=== PATIENT | male | born 1970 | race Caucasian/White ===

== ENCOUNTER 2021-03-27 12:33 | Emergency (ER) | payer OTHER ==
[~2021-03-27] VITALS: Ht 180.3 cm; Wt 136.1 kg
[~2021-03-27 12:33] MED LIST: BACTRIM DS TAB1 EACH PO; CIPRO500 MG PO; FLOMAX0.4 MG PO; HYDROCODONE-AP1 EAC6 PO; IBUPROFEN 800800 M1 PO; NORCO 5-325 TA1 EACH PO; ONDANSETRON HCL4 M2 PO
--- NOTE | 2021-03-27 13:20 | EKG ---
[place] [address] ELECTROCARDIOGRAM REPORT Name: CESARIO LLAMAS Room: [facility]#: [id number] Admission: Attend Phys: Discharge: Date of : 70 Date of Service: 03/27/21 1307 Report #: [id number] THIS REPORT FOR: //name// [facility] ED Test Date: 2021-03-27 Test Time: 13:07:32 Pat Name: CESARIO LLAMAS Department: Room: Gender: M Brand Mgr: KF : 1970 Requested By: Gavin Gay Order Number: [id number] MD: Ross Kumari Measurements Intervals [place] Rate: 79 P: 58 TN: 183 QRS: -28 QRSD: 112 T: 40 QT: 365 QTc: 419 Interpretive Statements Sinus rhythm left anterior fasicular block Incomplete right bundle branch block Abnormal R-wave progression, late transition Inferior infarct, old No previous ECG available for comparison Electronically Signed On 03-27-2021 13:19:42 CDT by Ross Kumari [email or web address] <ELECTRONICALLY SIGNED> By: Ross Kumari MD, [facility] 03/27/21 1319 1307 130 Ross Kumari MD, [facility] /EPI
[2021-03-27 13:38] LABS: ABSOLUTE EOSINOPHILS 0.1 thou/uL (0.0-0.7); ABSOLUTE LYMPHOCYTES 1.5 thou/uL (0.8-5.3); ABSOLUTE MONOCYTES 0.5 thou/uL (0.0-1.2); ABSOLUTE NEUTROPHILS 6.6 thou/uL (1.6-8.1); BASOPHILS 0.5 %; EOSINOPHILS 0.6 %; HEMATOCRIT 40.2 % (42.0-52.0); HEMOGLOBIN 14.2 gm/dL (14.0-18.0); LYMPHOCYTES 17.6 %; MCH 29.4 pg (26.0-34.0); MCHC 35.3 g/dL (28.0-37.0); MCV 83.3 fL (80.0-100.0); MONOCYTES 5.5 %; MPV 6.9 fl. (7.2-11.1); NUCLEATED RBCS 0 /100WBC; PLATELET COUNT* 237 thou/uL (150-400); POLYS 75.8 %; RBC 4.82 mil/uL (4.50-6.00); RDW-CV 13.6 % (10.5-14.5); WBC 8.8 thou/uL (4.0-11.0)
[2021-03-27 13:46] LABS: CALCIUM 8.5 mg/dL (8.5-10.1); CREATININE 0.8 mg/dL (0.6-1.3); POTASSIUM 3.8 mmol/L (3.5-5.1)
[2021-03-27 13:57] LABS: ALBUMIN 3.7 g/dL (3.4-5.0); TOTAL BILIRUBIN 0.4 mg/dL (<0.1-1.0); TOTAL PROTEIN 7.6 g/dL (6.4-8.2)
[2021-03-27 15:28] VITALS: BP 133/83
== END 2021-03-27 15:29 | disposition home or self-care (01) ==
LOC: M.ERS 12:33
PROVIDERS: Family Medicine
DX: R42 Dizziness and giddiness (principal); I10 Essential (primary) hypertension; E78.00 Pure hypercholesterolemia, unspecified; K21.9 Gastro-esophageal reflux disease without esophagitis

== ENCOUNTER 2021-03-31 14:26 | Emergency (ER) | payer OTHER ==
[~2021-03-31] VITALS: Ht 180.3 cm; Wt 136.1 kg
[2021-03-31 14:53] LABS: ABSOLUTE BASOPHILS 0.1 thou/uL (0.0-0.2); ABSOLUTE EOSINOPHILS 0.1 thou/uL (0.0-0.7); ABSOLUTE LYMPHOCYTES 2.1 thou/uL (0.8-5.3); ABSOLUTE MONOCYTES 0.6 thou/uL (0.0-1.2); ABSOLUTE NEUTROPHILS 6.3 thou/uL (1.6-8.1); EOSINOPHILS 1.2 %; HEMATOCRIT 41.1 % (42.0-52.0); HEMOGLOBIN 14.7 gm/dL (14.0-18.0); LYMPHOCYTES 22.8 %; MCHC 35.7 g/dL (28.0-37.0); MONOCYTES 6.6 %; MPV 6.9 fl. (7.2-11.1); NUCLEATED RBCS 0 /100WBC; PLATELET COUNT* 238 thou/uL (150-400); POLYS 68.4 %; RBC 4.89 mil/uL (4.50-6.00); RDW-CV 13.6 % (10.5-14.5); WBC 9.2 thou/uL (4.0-11.0)
[2021-03-31 14:54] LABS: URINE BILIRUBIN NEGATIVE (Negative); URINE BLOOD 1+ (Negative); URINE CLARITY CLEAR; URINE COLOR YELLOW; URINE GLUCOSE-RANDOM NEGATIVE (Negative); URINE KETONES NEGATIVE (Negative); URINE LEUKOCYTES-REFLEX NEGATIVE (Negative); URINE NITRITE-REFLEX NEGATIVE (Negative); URINE PROTEIN NEGATIVE (Negative); URINE SPECIFIC GRAVITY 1.025 (1.005-1.030); URINE UROBILINOGEN 0.2 E.U./dl (0.2-1.0)
[2021-03-31 15:01] LABS: CALCIUM 8.5 mg/dL (8.5-10.1); CREATININE 0.8 mg/dL (0.6-1.3); POTASSIUM 4.1 mmol/L (3.5-5.1)
[2021-03-31 15:04] LABS: HYALINE CASTS 0-3 Few /LPF (None Seen)
[2021-03-31 15:05] LABS: BACTERIA-REFLEX None Seen /HPF (None Seen); CRYSTALS None Seen /LPF (None Seen); MUCUS None Seen strn/LPF (None Seen); SQUAMOUS 0-3 Few /LPF (0-3); URINE RBC 0-2 Rare /HPF (0-2); URINE WBC-REFLEX None Seen /HPF (0-5)
[2021-03-31 15:12] LABS: ALBUMIN 3.5 g/dL (3.4-5.0); TOTAL BILIRUBIN 0.3 mg/dL (<0.1-1.0); TOTAL PROTEIN 7.7 g/dL (6.4-8.2)
[2021-03-31 15:46] LABS: SGOT 16.8 U/L (15-37); SGPT 28.8 U/L (30-65)
[2021-03-31] MEDS ORDERED: MECLIZINE HCL25 M1 PO (16:27)
[2021-03-31] MEDS ORDERED: TRANSDERM-SCOP1 EACH TRANSDERM (16:27)
[2021-03-31 16:40] VITALS: BP 149/95
[2021-03-31] MEDS ORDERED: CIPROFLOXIN HC2.5 M1 OTIC (18:40)
--- NOTE | 2021-04-01 16:05 | EKG ---
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: : 1970 Requested By: Kirsten Phillips Order Number: [id number] MD: Ross Kumari Measurements Intervals [place] Rate: 61 P: 16 AK: 186 QRS: -42 QRSD: 108 T: 26 QT: 393 QTc: 396 Interpretive Statements Sinus rhythm Left ventricular hypertrophy Inferior infarct, old Anterior Q waves, possibly due to LVH Compared to ECG 03/27/2021 13:07:32 Myocardial infarct finding still present Electronically Signed On 04-01-2021 16:04:57 CDT by Ross Kumari [email or web address] <ELECTRONICALLY SIGNED> By: Ross Kumari MD, FACC 04/01/21 1604 1437 1437 Ross Kumari MD, [facility] /EPI
== END 2021-03-31 16:42 | disposition home or self-care (01) ==
LOC: M.ERS 14:26
PROVIDERS: Physician Assistant
DX: R42 Dizziness and giddiness (principal); H10.9 Unspecified conjunctivitis; I10 Essential (primary) hypertension; K21.9 Gastro-esophageal reflux disease without esophagitis; E78.00 Pure hypercholesterolemia, unspecified; F17.220 Nicotine dependence, chewing tobacco, uncomplicated